=== PATIENT | male | born 1985 | race Two or more races ===

== ENCOUNTER 2023-10-19 15:20 | Emergency (ER) | payer MEDICAID ==
[~2023-10-19] VITALS: Ht 170.2 cm; Wt 90.9 kg
[2023-10-19 15:27] VITALS: BP 147/90; PULSE 86; RESP 16; TEMP 98.6; O2SAT 100
[2023-10-19] MEDS ORDERED: ERYT1OIN6 LEFTEYE (16:37)
== END 2023-10-19 16:44 | disposition home or self-care (01) ==
LOC: ER 15:20
DX: H57.89 Other specified disorders of eye and adnexa (principal); H57.12 Ocular pain, left eye; Z79.899 Other long term (current) drug therapy
CPT/HCPCS: 99283